=== PATIENT | male | born 2000 | race Caucasian/White ===

== ENCOUNTER → 2021-03-28 | Outpatient (CLI) | payer OTHER | LOC: RAD 18:45 | DX: M25.461 Effusion, right knee (principal) ==

== ENCOUNTER → 2022-04-15 | Outpatient (CLI) | payer OTHER ==
[2022-04-15 10:28] LABS: BASO # 0.01 K/mm3 (0.02-0.10); EOS # 0.19 K/mm3 (0.04-0.40); HEMATOCRIT 48.2 % (42.0-52.0); HEMOGLOBIN 16.3 g/dL (13.5-18.0); LYMPH# 1.63 K/mm3 (1.50-4.00); MEAN CELL VOLUME 89 fl (78-100); MEAN CORPUSCULAR HEMOGLOBIN 30 pg (27-31); MEAN CORPUSCULAR HGB CONC 34 g/dL (33-37); MEAN PLATELET VOLUME 10.1 fl (7.4-10.4); MONO # 0.54 K/mm3 (0.20-0.80); NEU # 3.86 K/mm3 (1.40-6.50); PLATELET COUNT 271 K/mm3 (130-400); RED BLOOD COUNT 5.43 M/mm3 (4.20-5.60); RED CELL DISTRIBUTION WIDTH 12.7 % (11.5-14.5); WHITE BLOOD COUNT 6.2 K/mm3 (4.8-10.8)
[2022-04-15 10:34] LABS: ALBUMIN 4.4 g/dL (3.5-5.0)
[2022-04-15 10:35] LABS: POTASSIUM 3.9 mmol/L (3.5-5.1)
[2022-04-15 10:36] LABS: CALCIUM 9.8 mg/dL (8.3-10.5)
[2022-04-15 10:37] LABS: TOTAL PROTEIN 7.8 g/dL (6.4-8.3)
[2022-04-15 10:39] LABS: TOTAL BILIRUBIN 0.4 mg/dL (0.2-1.2)
== END ==
LOC: LAB 10:08
PROVIDERS: Internal Medicine
DX: F90.0 Attention-deficit hyperactivity disorder, predominantly inattentive type (principal); F41.8 Other specified anxiety disorders; J30.2 Other seasonal allergic rhinitis

== ENCOUNTER → 2025-02-08 | Outpatient (CLI) | payer BC ==
[2025-02-08 16:39] LABS: BASO # 0.01 K/mm3 (0.02-0.10); EOS % 1.5 % (0.0-4.0); HEMATOCRIT 45.2 % (42.0-52.0); HEMOGLOBIN 15.3 g/dL (13.5-18.0); LYMPH# 1.52 K/mm3 (1.50-4.00); MEAN CELL VOLUME 90 fl (78-100); MEAN CORPUSCULAR HEMOGLOBIN 30 pg (27-31); MEAN CORPUSCULAR HGB CONC 34 g/dL (33-37); MEAN PLATELET VOLUME 9.5 fl (7.4-10.4); NEU # 4.45 K/mm3 (1.40-6.50); PLATELET COUNT 336 K/mm3 (130-400); RED BLOOD COUNT 5.04 M/mm3 (4.20-5.60); RED CELL DISTRIBUTION WIDTH 12.2 % (11.5-14.5); WHITE BLOOD COUNT 6.6 K/mm3 (4.8-10.8)
[2025-02-08 16:44] LABS: ALBUMIN 4.6 g/dL (3.5-5.0)
[2025-02-08 16:45] LABS: CALCIUM 9.7 mg/dL (8.3-10.5)
[2025-02-08 16:46] LABS: TOTAL PROTEIN 8.1 g/dL (6.4-8.3)
[2025-02-08 16:48] LABS: TOTAL BILIRUBIN 0.5 mg/dL (0.2-1.2)
== END ==
LOC: LAB 16:22
PROVIDERS: Internal Medicine
DX: F41.8 Other specified anxiety disorders (principal); K90.9 Intestinal malabsorption, unspecified; E78.2 Mixed hyperlipidemia